=== PATIENT | female | born 1995 | race Caucasian/White ===

== ENCOUNTER 2018-03-24 17:49 | Emergency (ER) | payer OTHER ==
[~2018-03-24] VITALS: Ht 165.1 cm; Wt 82.0 kg
[2018-03-24 17:57] VITALS: TEMP 36.8; Ht 165.1 cm; Wt 82.0 kg
--- NOTE | 2018-03-24 19:18 | EMERGENCY ROOM VISIT NOTE ---
History First contact with patient: 18:28 Chief Complaint: ANXIETY Stated Complaint: SEVERE ANXIETY ATTACKS, GROGGY, DULL, TIRED History of Present Illness The patient is a 22 year old female who presents to the Emergency Room with complaints of acute worsening of her anxiety. She reports being anxious ever since she went to [place] for a study abroad program in early 2018. Her anxiety has acutely worsened in the past 48 hours. Pt arrived in [place] on Wednesday and has been drinking significantly since she arrived. She reports drinking around 5-6 liquor shots per night and has been smoking marijuana several days per week. Her last drink was 48hours prior (she has decided to cut it out) and has been experiencing severe anxiety in the past two days. The patient currently rates her anxiety as a 3/10, 0 being her normal self and 10 being severe anxiety. GAD7 score was 12 (+3 feeling nervous, +3 +3 being able to stop worrying, +3 trouble relaxing). Pt has never been diagnosed with a mood disorder and has never taken medications for a mood disorder. PMHx: Breast reduction surgery, UTIs. Meds: None. FMHx: Anxiety Disorders. No family history of thyroid disorders. SHx: Pt works at the [employer], she likes her work, has worked there for two years. No siblings. Two cats. 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 ROS: No fevers, no chills, feels that she cannot focus, no diarrhea, no chest pain, no vomiting. No thoughts of hurting herself of others, she denies hearing voices. She does however report feeling paranoid at times. Mom has travelled from [place] to be with her daughter. She was asked to leave the room during most of the HPI. Pt does not have a PCP in [place]. Source of History: patient, family Onset: acute exacerbation two days ago, chronically 6 months ago Symptom Intensity: moderate Timing: constant Modifying Factors (Relieving): other (ETOH relieves symptoms) Associated Symptoms: No fevers, No chills, No headache, No diaphoresis, No sorethroat, No cough, No chest pain, No SOB, No nausea, No vomiting, No abdominal pain, No back pain Review of Systems See HPI for pertinent positives and negatives. A total of ten systems were reviewed and were otherwise negative. Constitutional: No fever, No chills, No weight loss Eyes: No worsening of vision ENT: No hearing loss Respiratory: No cough, No sputum, No wheezing, No shortness of breath, No dyspnea on exertion Cardiovascular: No chest pain Abdomen: No pain, No nausea, No vomiting, No diarrhea, No constipation Musculoskeletal: No joint pain Genitourinary - Female: No dysuria, No urinary frequency, No urinary urgency , No urinary incontinence Neurologic: No memory loss Psychiatric: No depression symptoms, No anxiety Endocrine: No fatigue Social History Smoking Status: Never Smoker Current/Historical Medications No Active Prescriptions or Reported Meds Physical Exam Vital Signs Date Time Temp Pulse Resp B/P (MAP) Pulse Ox O2 Delivery O2 Flow Rate FiO2 03/24/18 20:36 67 112/69 97 Room Air 03/24/18 17:57 36.8 93 20 117/79 98 Room Air Physical Exam Gen: No acute distress. HEENT: Head - normocephalic and atraumatic. Pupils are equal, round, and reactive to light. Extraocular eye muscles are intact and sclera are anicteric. Ears - bilaterally patent canals with noninjected tympanic membranes and no evidence of hemotympanum. Nose - moist nasal mucosa without discharge. Mouth - moist buccal mucosa. Oropharynx is nonerythematous and there is no tonsillar exudate or edema noted. Neck: Supple; no JVD, nuchal rigidity, cervical lymphadenopathy, or auscultated bruits. Heart: Regular rate and rhythm. There is a normal S1 and S2 with no murmurs, clicks, or gallops appreciated. Lungs: Clear to auscultation bilaterally with no wheezes, rales, or rhonchi. Abdomen: Soft, completely nontender, nondistended, with good bowel sounds. There are no palpable pulsatile masses or hepatosplenomegaly. There is no guarding, rigidity, or rebound noted. Extremities: No evidence of cyanosis, clubbing, or edema. There are easily palpable peripheral pulses. Neuro:The patient is awake and alert, oriented to day, time, and place. Muscle strength is 5/5 in all 4 extremities. The patient has equal membership manager strength and equal pedal push and pull. There are no cerebellar signs. MOOD: Normal mood and affect. No SI, no HI. Pt denies hearing voices. Medical Decision & Procedures Laboratory Results 03/24/18 19:40 Red Blood Count 4.72, Mean Corpuscular Volume 91.5, Mean Corpuscular Hemoglobin 31.6, Mean Corpuscular Hemoglobin Concent 34.5, Mean Platelet Volume 10.5, Neutrophils (%) (Auto) 63.5, Lymphocytes (%) (Auto) 24.2, Monocytes (%) (Auto) 10.4, Eosinophils (%) (Auto) 1.1, Basophils (%) (Auto) 0.5, Neutrophils # (Auto ) 5.00, Lymphocytes # (Auto) 1.91, Monocytes # (Auto) 0.82, Eosinophils # (Auto ) 0.09, Basophils # (Auto) 0.04 03/24/18 19:40 Test 03/24/18 19:40 White Blood Count 7.88 K/uL (4.8-10.8) Red Blood Count 4.72 M/uL (4.2-5.4) Hemoglobin 14.9 g/dL (12.0-16.0) Hematocrit 43.2 % (37-47) Mean Corpuscular Volume 91.5 fL (80-100) Mean Corpuscular Hemoglobin 31.6 pg (25-34) Mean Corpuscular Hemoglobin Concent 34.5 g/dl (32-36) Platelet Count 295 K/uL (130-400) Mean Platelet Volume 10.5 fL (7.4-10.4) Neutrophils (%) (Auto) 63.5 % Lymphocytes (%) (Auto) 24.2 % Monocytes (%) (Auto) 10.4 % Eosinophils (%) (Auto) 1.1 % Basophils (%) (Auto) 0.5 % Neutrophils # (Auto) 5.00 K/uL (1.4-6.5) Lymphocytes # (Auto) 1.91 K/uL (1.2-3.4) Monocytes # (Auto) 0.82 K/uL (0.11-0.59) Eosinophils # (Auto) 0.09 K/uL (0-0.5) Basophils # (Auto) 0.04 K/uL (0-0.2) RDW Standard Deviation 43.1 fL (36.4-46.3) RDW Coefficient of Variation 12.8 % (11.5-14.5) Immature Granulocyte % (Auto) 0.3 % Immature Granulocyte # (Auto) 0.02 K/uL (0.00-0.02) Anion Gap 9.0 mmol/L (3-11) Est Creatinine Clear Calc Drug Dose 98.0 ml/min Estimated GFR () 98.0 Estimated GFR (Non- 84.5 BUN/Creatinine Ratio 15.3 (10-20) Calcium Level 8.7 mg/dl (8.5-10.1) Total Bilirubin 0.4 mg/dl (0.2-1) Aspartate Amino Transf (AST/SGOT) 18 U/L (15-37) Alanine Aminotransferase (ALT/SGPT) 25 U/L (12-78) Alkaline Phosphatase 72 U/L (45-117) Total Protein 7.5 gm/dl (6.4-8.2) Albumin 3.7 gm/dl (3.4-5.0) Globulin 3.8 gm/dl (2.5-4.0) Albumin/Globulin Ratio 1.0 (0.9-2) Thyroid Stimulating Hormone (TSH) 1.680 uIu/ml (0.300-4.500) Medical Decision The patient's care and disposition was discussed with Dr. Gil, Attending ED Physician. This is a 22F with anxiety. Differential diagnosis include anxiety, thyroid storm, mood disorder, toxicologic, infection, hypoglycemia, electrolyte abnormalities, cardiac sources, intracerebral event, neurologic, as well as others were entertained. Triage Nursing notes were reviewed. ED Course included an extensive history and physical exam and labs. 7:00pm - Pt was seen and examined at bedside. Spent >30min counselling patient on lifestyle interventions to control anxiety. 7:30pm - Case discussed with Dr. Gil and initial orders placed. 9:00pm - Lab results were discussed with mom and pt. TSH and CBC are normal. There may very well be an underlying mood disorder however it is difficult to properly assess in the setting of acute severe alcohol abuse and possible acute withdrawal affects. Additionally marijuana is known to cause paranoia. Pt appears to have excellent social relationships. I believe she will thrive if she ceases all consumption of ethanol and marijuana. She has promised me that she will quit smoking and drinking. Follow up with [facility] was encouraged - we will give two weeks of lifestyle interventions and reassess her mood in the clinic setting. She was given my business card. Mom was present on discharge. Pt had no questions. She was given the option of a final discussion without mom in the room and declined. Mood was good on discharge. [facility] discharge information on Anxiety was given to patient on discharge. All questions were answered. Return instructions were outlined and the patient was discharged in good condition. Head Trauma GCS Score: 15 Impression Primary Impression: Acute anxiety Departure Information Dispostion Home / Self-Care Condition GOOD Prescriptions No Active Prescriptions or Reported Meds Referrals No Doctor, Assigned (PCP) Patient Instructions My [facility] Additional Instructions Your lab work today was normal. We recommend establishing care with a primary care provider in [place]. You can make an appointment with the [facility] in [place]. This clinic is located at [address] in [place], [address]. Information has been given to you today about [facility] - this is a free counselling service open to [facility] Students. We also strongly encourage ceasing any alcohol or marijuana consumption as these substances are known to exacerbate any mood type symptoms. Resident Involvement: Resident Care Provided Care Provided: Pediatric Care ED
[2018-03-24 19:53] LABS: BASO % 0.5 %; BASO ABS # 0.04 K/uL (0-0.2); EOS % 1.1 %; EOS ABS # 0.09 K/uL (0-0.5); HEMATOCRIT 43.2 % (37-47); HEMOGLOBIN 14.9 g/dL (12.0-16.0); IG# 0.02 K/uL (0.00-0.02); LYMPH % 24.2 %; LYMPH ABS # 1.91 K/uL (1.2-3.4); MEAN CELL VOLUME 91.5 fL (80-100); MEAN CORPUSCULAR HEMOGLOBIN 31.6 pg (25-34); MEAN CORPUSCULAR HGB CONC 34.5 g/dl (32-36); MEAN PLATELET VOLUME 10.5 fL (7.4-10.4); MONO % 10.4 %; MONO ABS # 0.82 K/uL (0.11-0.59); NEUT % 63.5 %; PLATELET COUNT 295 K/uL (130-400); RED CELL DISTRIBUTION WIDTH CV 12.8 % (11.5-14.5); RED CELL DISTRIBUTION WIDTH SD 43.1 fL (36.4-46.3); WHITE BLOOD COUNT 7.88 K/uL (4.8-10.8)
--- NOTE | 2018-03-24 20:08 | EMERGENCY ROOM VISIT NOTE ---
ED Visit Note First contact with patient: 18:28 The patient was seen and examined with Dr. Lefty Rosario. I agree with the history, physical and findings. Please see the note for disposition and details.
[2018-03-24 20:34] LABS: ALBUMIN 3.7 gm/dl (3.4-5.0); CALCIUM 8.7 mg/dl (8.5-10.1); CREATININE 0.96 mg/dl (0.60-1.20); POTASSIUM 3.7 mmol/L (3.5-5.1); TOTAL PROTEIN 7.5 gm/dl (6.4-8.2)
[2018-03-24 21:26] VITALS: BP 123/72; PULSE 73; O2SAT 96
== END 2018-03-24 21:28 | disposition home or self-care (01) ==
LOC: C.EDB 17:50
DX: F41.9 Anxiety disorder, unspecified (principal)